=== PATIENT | female | born 1950 | race Hispanic/Latino ===

== ENCOUNTER 2020-10-30 12:55 | Outpatient (CLI) | payer MEDICARE, OTHER | END 2020-10-30 12:56 | disposition home or self-care (01) | LOC: BICULT 12:55 | PROVIDERS: ATTEND Internal Medicine | DX: R09.89 Other specified symptoms and signs involving the circulatory and respiratory systems (principal); R42 Dizziness and giddiness | CPT/HCPCS: 93880 ==

== ENCOUNTER 2023-01-21 09:36 | Outpatient (CLI) | payer MEDICARE, OTHER | END 2023-01-21 09:37 | disposition home or self-care (01) | LOC: BICMAMMO 09:36 | PROVIDERS: ATTEND Internal Medicine | DX: Z12.31 Encounter for screening mammogram for malignant neoplasm of breast (principal); Z13.820 Encounter for screening for osteoporosis; M85.89 Other specified disorders of bone density and structure, multiple sites; Z98.82 Breast implant status | CPT/HCPCS: 77063; 77067; 77080 ==

== ENCOUNTER 2024-02-17 10:59 | Observation (INO) | payer MEDICARE, OTHER ==
[2024-02-17 12:48] LABS: #Basophils 0.03 10x3/uL (0.0-0.2); %Basophils 0.4 % (0.0-1.0); %Eosinophils 0.4 % (0.0-10.0); %Lymphocytes 8.9 % (21.0-51.0); %Monocytes 6.2 % (0.0-10.0); %Neutrophils 83.7 % (42.0-75.0); Hematocrit 37.4 % (36.0-47.0); Hemoglobin 12.5 g/dL (12.0-16.0); Mean Corpuscular HGB CONC 33.4 g/dL (32.0-36.0); Mean Corpuscular Volume 95.7 fL (78.0-98.0); Mean Platelet Volume 10.2 fL (7.4-10.4); Platelet Count 292 10x3/uL (130-400); RBC Distribution Width 12.8 % (11.5-14.5); Red Blood Cell (RBC) Count 3.91 mill/uL (4.20-5.40)
[2024-02-17] MEDS ORDERED: Acetaminophen 500 MG TAB ONE (13:00)
[2024-02-17 13:48] LABS: Lipase 303 U/L (8-78)
[2024-02-17 13:49] LABS: ALT (SGPT) 839 U/L (8-55); AST (SGOT) 495 U/L (5-34); Albumin 3.7 g/dL (3.4-4.8); Alkaline Phosphatase 303 U/L (40-110); Anion Gap 18 mmol/L (10-20); BUN (Urea Nitrogen) 8 mg/dL (9.8-20.1); Bilirubin, Total 6.9 mg/dL (0.2-1.2); Calc. Creatinine Clearance 0 mL/min (70-130); Calcium 10.1 mg/dL (7.8-10.44); Carbon Dioxide 21 mmol/L (23-31); Chloride 101 mmol/L (98-107); Estimated GFR 72; Globulin 3.9 g/dL (2.4-3.5); Glucose 141 mg/dL (83-110); Potassium 3.6 mmol/L (3.5-5.1); Protein, Total 7.6 g/dL (5.8-8.1); Sodium 136 mmol/L (136-145)
[2024-02-17] MEDS ORDERED: EPINEPHrine 1 MG/ML VIAL ONE (14:50)
[2024-02-17] MEDS ORDERED: Bupivacaine PF 0.5% 30 ML VIAL ONE (14:50)
[2024-02-17] MEDS ORDERED: LevoFLOXacin D5W 500 mg (100 mL) BAG ONE (14:50)
[2024-02-17] MEDS ORDERED: Iopamidol 15 ML ONE ×2 (14:53→17:01)
[2024-02-17] MEDS ORDERED: fentaNYL PF 100 MCG/2 ML SYRINGE ONE (15:26)
[2024-02-17] MEDS ORDERED: Rocuronium Bromide 10 MG/ML (10ML VIAL) ONE ×2 (15:27→16:07)
[2024-02-17] MEDS ORDERED: Lidocaine 1% PF 5 ML VIAL ONE (15:27)
[2024-02-17] MEDS ORDERED: PROPOFOL 20 ML ONE (15:27)
[2024-02-17] MEDS ORDERED: SUCCINYLCHOLINE/SOD CL,ISO/PF 200 MG/10 ML SYRINGE FS ONE (16:07)
[2024-02-17] MEDS ORDERED: Indomethacin 50 MG SUPP ONE ×2 (16:33→17:28)
[2024-02-17] MEDS ORDERED: Dexamethasone 20 MG/5 ML VIAL ONE (16:35)
[2024-02-17] MEDS ORDERED: Glucagon 1 MG/ML KIT ONE (16:41)
[2024-02-17] MEDS ORDERED: Ondansetron PF 4 MG/2 ML Vial ONE (16:54)
[2024-02-17] MEDS ORDERED: Iopamidol 30 ML ONE (17:30)
[2024-02-17] MEDS ORDERED: SUGAMMADEX SODIUM 200 MG/2 ML VIAL ONE (18:12)
[2024-02-17] MEDS ORDERED: Ketorolac Tromethamine 30 MG (1 mL) VIAL ONE (18:12)
[2024-02-17] MEDS ORDERED: Morphine 4 MG/ML VIAL SLOW IVP PRN (18:40)
[2024-02-17] MEDS ORDERED: fentaNYL 50 mcg/mL 1 mL Vial ONE (18:58)
[2024-02-17] MEDS ORDERED: HYDROmorphone 0.5 MG/0.5 ML SYRINGE ONE (19:30)
[2024-02-17] MEDS ORDERED: Promethazine HCl 25 MG/ML VIAL ONE (19:38)
[2024-02-17] MEDS: Lactated Ringer's 1,000 ML IV SCH (20:46)
[2024-02-17] MEDS: Famotidine 20 MG TAB PO SCH (20:46)
[2024-02-17] MEDS: Acetaminophen 500 MG TAB PO SCH (20:46)
[2024-02-17] MEDS: Ondansetron ODT 4 MG TAB PO PRN (21:19)
[2024-02-17 21:51] VITALS: BMI 21.7
[2024-02-17] MEDS: hydrALAZINE 20 MG/ML VIAL SLOW IVP PRN (23:40)
[2024-02-18] MEDS: traMADol HCl 50 MG TAB PO PRN (01:50)
[2024-02-18 05:41] LABS: #Basophils Less than 0.03 10x3/uL (0.0-0.2); #Eosinphils Less than 0.03 10x3/uL (0.0-0.7); %Basophils 0.1 % (0.0-1.0); %Lymphocytes 6.2 % (21.0-51.0); %Monocytes 4.2 % (0.0-10.0); Hematocrit 31.5 % (36.0-47.0); Hemoglobin 11.2 g/dL (12.0-16.0); Mean Corpuscular HGB CONC 35.6 g/dL (32.0-36.0); Mean Corpuscular Hemoglobin 31.8 pg (27.0-31.0); Mean Corpuscular Volume 89.5 fL (78.0-98.0); Mean Platelet Volume 9.1 fL (7.4-10.4); Platelet Count 315 10x3/uL (130-400); RBC Distribution Width 12.3 % (11.5-14.5); Red Blood Cell (RBC) Count 3.52 mill/uL (4.20-5.40)
[2024-02-18 05:57] LABS: ALT (SGPT) 739 U/L (8-55); AST (SGOT) 361 U/L (5-34); Albumin 3.3 g/dL (3.4-4.8); Alkaline Phosphatase 262 U/L (40-110); Anion Gap 14 mmol/L (10-20); BUN (Urea Nitrogen) 10 mg/dL (9.8-20.1); Bilirubin, Total 3.6 mg/dL (0.2-1.2); Calc. Creatinine Clearance 58 mL/min (70-130); Carbon Dioxide 23 mmol/L (23-31); Chloride 100 mmol/L (98-107); Estimated GFR 74; Globulin 3.4 g/dL (2.4-3.5); Glucose 117 mg/dL (83-110); Potassium 3.6 mmol/L (3.5-5.1); Protein, Total 6.7 g/dL (5.8-8.1); Sodium 133 mmol/L (136-145)
[2024-02-18 06:22] VITALS: TEMP 98.2
[2024-02-18] MEDS: Famotidine 20 MG TAB PO SCH (08:07)
[2024-02-18] MEDS: Enoxaparin 40 MG (0.4 mL) SYRINGE SC SCH (08:08)
[2024-02-18] MEDS: LevoFLOXacin 750 mg/D5W 750 MG in Premix 1 BAG IVPB SCH (08:17)
[2024-02-18 08:28] VITALS: BP 151/86
[2024-02-18] MEDS: metFORMIN 500 MG TAB PO SCH (09:22)
[2024-02-18] MEDS: Hydrochlorothiazide 25 MG TAB PO SCH (09:23)
[2024-02-18] MEDS: Losartan 25 MG TAB PO SCH (09:23)
[2024-02-19] MEDS ORDERED: metFORMIN 500 MG TAB PO SCH (08:00)
== END 2024-02-18 12:15 | disposition home or self-care (01) ==
LOC: ERS 10:59 → SDC/OP 15:08 → SURG A 19:57
PROVIDERS: ADMIT Specialist; ATTEND Specialist
PROC: 0F9C8ZZ Drainage of Ampulla of Vater, Via Natural or Artificial Opening Endoscopic (ICD-10-PCS; principal; 2024-02-17)
PROC: 0FC88ZZ Extirpation of Matter from Cystic Duct, Via Natural or Artificial Opening Endoscopic (ICD-10-PCS; 2024-02-17)
PROC: 0FT44ZZ Resection of Gallbladder, Percutaneous Endoscopic Approach (ICD-10-PCS; 2024-02-17)
DX: K80.66 Calculus of gallbladder and bile duct with acute and chronic cholecystitis without obstruction (principal); Z88.0 Allergy status to penicillin; Z90.49 Acquired absence of other specified parts of digestive tract; Z98.51 Tubal ligation status; Z98.890 Other specified postprocedural states
CPT/HCPCS: 43262; 43264; 47562; 74330; 76705; 80053 ×2; 83690; 85025 ×2; 96374; 99285; C1889; J0171; J0360; J0665; J1100; J1170; J1611; J1650; J1885; J1956 ×2; J2405; J2704; J3010; J7120; Q0162; Q9967; 36415; 88304; J2550

== ENCOUNTER 2024-02-19 15:42 | Observation (INO) | payer MEDICARE, OTHER ==
[2024-02-19] MEDS ORDERED: Ondansetron ODT 4 MG TAB PO PRN (16:30)
[2024-02-19] MEDS ORDERED: Morphine 2 MG/ML VIAL SLOW IVP PRN (16:30)
[2024-02-19] MEDS: Lactated Ringer's 1,000 ML IV SCH ×2 (17:59→19:42)
[2024-02-19] MEDS: LevoFLOXacin 500 mg/D5W 500 MG in Premix 1 BAG IVPB SCH (17:59)
[2024-02-19 18:41] LABS: #Basophils Less than 0.03 10x3/uL (0.0-0.2); #Eosinphils Less than 0.03 10x3/uL (0.0-0.7); %Basophils 0.1 % (0.0-1.0); %Eosinophils 0.1 % (0.0-10.0); %Lymphocytes 8.4 % (21.0-51.0); %Monocytes 5.1 % (0.0-10.0); %Neutrophils 85.7 % (42.0-75.0); Hematocrit 26.9 % (36.0-47.0); Hemoglobin 9.8 g/dL (12.0-16.0); Mean Corpuscular HGB CONC 36.4 g/dL (32.0-36.0); Mean Corpuscular Hemoglobin 31.8 pg (27.0-31.0); Mean Corpuscular Volume 87.3 fL (78.0-98.0); Mean Platelet Volume 8.9 fL (7.4-10.4); Platelet Count 240 10x3/uL (130-400); Red Blood Cell (RBC) Count 3.08 mill/uL (4.20-5.40)
[2024-02-19] MEDS: Pantoprazole 40 MG VIAL IVP SCH (18:45)
[2024-02-19 18:59] LABS: ALT (SGPT) 421 U/L (8-55); AST (SGOT) 128 U/L (5-34); Alkaline Phosphatase 174 U/L (40-110); Anion Gap 16 mmol/L (10-20); BUN (Urea Nitrogen) 8 mg/dL (9.8-20.1); Bilirubin, Total 2.1 mg/dL (0.2-1.2); Calc. Creatinine Clearance 0 mL/min (70-130); Calcium 8.4 mg/dL (7.8-10.44); Carbon Dioxide 23 mmol/L (23-31); Chloride 86 mmol/L (98-107); Estimated GFR 92; Glucose 122 mg/dL (83-110); Lipase 7 U/L (8-78); Potassium 2.7 mmol/L (3.5-5.1); Sodium 122 mmol/L (136-145)
[2024-02-19 19:41] VITALS: BMI 24.7
[2024-02-19] MEDS: Potassium Chloride 20 MEQ TAB PO SCH (20:03)
[2024-02-19] MEDS: Acetaminophen 500 MG TAB PO PRN (21:04)
[2024-02-19] MEDS: Enoxaparin 40 MG (0.4 mL) SYRINGE SC SCH (21:04)
[2024-02-19] MEDS: Ondansetron PF 4 MG/2 ML Vial IVP PRN (21:13)
[2024-02-19] MEDS: NS 0.9% w/ 40 MEQ KCL 1,000 ML IV SCH (22:27)
[2024-02-20 06:04] LABS: #Basophils Less than 0.03 10x3/uL (0.0-0.2); %Basophils 0.3 % (0.0-1.0); %Eosinophils 0.6 % (0.0-10.0); %Lymphocytes 11.5 % (21.0-51.0); %Monocytes 9.3 % (0.0-10.0); %Neutrophils 77.7 % (42.0-75.0); Hematocrit 27.4 % (36.0-47.0); Hemoglobin 9.9 g/dL (12.0-16.0); Mean Corpuscular HGB CONC 36.1 g/dL (32.0-36.0); Mean Corpuscular Hemoglobin 31.6 pg (27.0-31.0); Mean Corpuscular Volume 87.5 fL (78.0-98.0); Mean Platelet Volume 9.5 fL (7.4-10.4); Platelet Count 238 10x3/uL (130-400); RBC Distribution Width 12.1 % (11.5-14.5); Red Blood Cell (RBC) Count 3.13 mill/uL (4.20-5.40)
[2024-02-20 06:26] LABS: ALT (SGPT) 336 U/L (8-55); AST (SGOT) 93 U/L (5-34); Albumin 2.7 g/dL (3.4-4.8); Alkaline Phosphatase 159 U/L (40-110); Anion Gap 12 mmol/L (10-20); BUN (Urea Nitrogen) 7 mg/dL (9.8-20.1); Bilirubin, Total 1.9 mg/dL (0.2-1.2); Calc. Creatinine Clearance 76 mL/min (70-130); Calcium 8.6 mg/dL (7.8-10.44); Carbon Dioxide 24 mmol/L (23-31); Chloride 100 mmol/L (98-107); Estimated GFR 93; Globulin 2.9 g/dL (2.4-3.5); Glucose 99 mg/dL (83-110); Potassium 3.4 mmol/L (3.5-5.1); Protein, Total 5.6 g/dL (5.8-8.1); Sodium 133 mmol/L (136-145)
[2024-02-20] MEDS: Potassium Chloride 20 MEQ TAB PO SCH (09:30)
[2024-02-20] MEDS: Pantoprazole 40 MG VIAL IVP SCH (09:32)
[2024-02-20 11:01] VITALS: BMI 24.7
[2024-02-20 11:52] VITALS: BP 163/70; TEMP 98
[2024-02-20] MEDS ORDERED: LevoFLOXacin 500 mg/D5W 500 MG in Premix 1 BAG IVPB SCH (18:00)
== END 2024-02-20 14:18 | disposition home or self-care (01) ==
LOC: INTOOBSV 15:42 → SURG B 15:42
PROVIDERS: ADMIT Specialist; ATTEND Specialist
DX: E87.1 Hypo-osmolality and hyponatremia (principal); E87.6 Hypokalemia; E87.8 Other disorders of electrolyte and fluid balance, not elsewhere classified; E88.09 Other disorders of plasma-protein metabolism, not elsewhere classified; D64.9 Anemia, unspecified; Z79.899 Other long term (current) drug therapy
CPT/HCPCS: 80053 ×2; 83690; 83930; 83935; 84300; 85025 ×2; J1650; J1956; J2405; J2470 ×2; J3480; J7120; 36415